=== PATIENT | female | born 1970 | race Caucasian/White ===

== ENCOUNTER → 2016-11-07 | Outpatient (CLI) | payer OTHER ==
--- NOTE | 2016-11-07 11:51 | XR ---
EXAMINATION TYPE: XR foot limited LT DATE OF EXAM: 11/07/2016 CLINICAL HISTORY: Left foot pain since injury 2 years ago. TECHNIQUE: Frontal and lateral images of the left foot are obtained. COMPARISON: None FINDINGS: There is no acute fracture/dislocation evident in the left foot. There is joint space loss with sclerosis and spurring anterior talonavicular articulation. There is moderate size inferior bladimir caneal spur. There is flexion in varus positioning of distal fourth and fifth toes. The overlying so ft tissue appears unremarkable. IMPRESSION: There is calcaneal spurring and hindfoot arthropathy talonavicular articulation.
[2016-11-07 13:36] LABS: CH 31.2; CHCM 33.4; HCT 44.8 % (34.0-46.0); HDW 2.38; HGB 15.1 gm/dL (11.4-16.0); MCH 31.6 pg (25.0-35.0); MCHC 33.7 g/dL (31.0-37.0); MCV 93.8 fL (80.0-100.0); Mean Platelet Volume 7.4; RBC 4.78 m/uL (3.80-5.40); RDW 12.6 % (11.5-15.5); WBC 7.4 k/uL (3.8-10.6)
[2016-11-07 13:39] LABS: ALT 31 U/L (9-52); AST 23 U/L (14-36); Alkaline Phosphatase 57 U/L (38-126); Anion Gap 6 mmol/L; Blood Urea Nitrogen 11 mg/dL (7-17); Calcium 9.5 mg/dL (8.4-10.2); Carbon Dioxide 29 mmol/L (22-30); Chloride 107 mmol/L (98-107); Cholesterol 145 mg/dL (<200); Glucose 90 mg/dL (74-99); HDL Cholesterol 44 mg/dL (40-60); Non-African American GFR(MDRD) >60 (>60 ml/min/1.73 sqM); Potassium 4.6 mmol/L (3.5-5.1); Sodium 142 mmol/L (137-145); Total Bilirubin 0.4 mg/dL (0.2-1.3); Total Protein 5.5 g/dL (6.3-8.2); Triglycerides 74 mg/dL (<150)
[2016-11-07 14:02] LABS: Hemoglobin A1C 5.3 % (4.2-6.1)
== END | disposition home or self-care (01) ==
LOC: RADXRMAIN 11:20
PROVIDERS: ATTEND Internal Medicine
DX: S99.922A Unspecified injury of left foot, initial encounter (principal); R53.83 Other fatigue; M77.32 Calcaneal spur, left foot; X58.XXXA Exposure to other specified factors, initial encounter
CPT/HCPCS: 80053; 80061; 83036; 84439; 84443; 84481; 85027

== ENCOUNTER → 2018-07-04 | Outpatient (CLI) | payer BC ==
[2018-07-04 14:34] LABS: Basophils % (A) 1 %; Eosinophils # (A) 0.2 k/uL (0-0.7); Eosinophils % (A) 3 %; HCT 43.8 % (34.0-46.0); Lymphocytes % (A) 50 %; MCH 30.2 pg (25.0-35.0); MCHC 32.1 g/dL (31.0-37.0); MCV 94.1 fL (80.0-100.0); Mean Platelet Volume 6.6; Monocytes # (A) 0.2 k/uL (0-1.0); Monocytes % (A) 3 %; Neutrophils # (A) 2.5 k/uL (1.3-7.7); Neutrophils % (A) 41 %; Platelet Count 217 k/uL (150-450); RBC 4.65 m/uL (3.80-5.40); RDW 12.8 % (11.5-15.5)
[2018-07-04 19:45] LABS: Albumin 3.7 g/dL (3.80-4.90); Albumin/Globulin Ratio 2.47 (1.60-3.17); Anion Gap 6.2 mmol/L (4.00-12.00); Calcium 9.1 mg/dL (8.7-10.3); Carbon Dioxide 27.8 mmol/L (21.6-31.8); Globulin 1.5 g/dL (1.6-3.3); LDL Cholesterol,Calculated 99.2 mg/dL (0.0-131.0); Potassium 3.9 mmol/L (3.5-5.5); Total Bilirubin 0.4 mg/dL (0.2-1.2); Total Protein 5.2 g/dL (6.2-8.2); VLDL Calculation 27.8 mg/dL (5.00-40.00)
[2018-07-04 19:52] LABS: T4, Free (Free Thyroxine) 1.3 ng/dL (0.80-1.80)
== END | disposition home or self-care (01) ==
LOC: LABWHC1 13:48
PROVIDERS: ATTEND Nurse Practitioner Women's Health
DX: Z00.00 Encounter for general adult medical examination without abnormal findings (principal); I10 Essential (primary) hypertension; Z79.899 Other long term (current) drug therapy
CPT/HCPCS: 36415; 80053; 80061; 84439; 84443; 85025

== ENCOUNTER → 2018-07-19 | Outpatient (CLI) | payer BC ==
--- NOTE | 2018-07-20 10:36 | MM ---
Reason for exam: screening (asymptomatic). Last mammogram was performed 5 years and 7 months ago. History: Patient is postmenopausal. Benign right mammotome panel of the right breast, December 21, 2010. Cancelled Right Mammotome of the right breast, May 04, 2010. Physical Findings: A clinical breast exam by your physician is recommended on an annual basis and results should be correlated with mammographic findings. MG Screening Mammo w CAD Bilateral CC and MLO view(s) were taken. Prior study comparison: December 05, 2012, bilateral digital screening mammo w/CAD. December 21, 2010, CAD bilateral diagnostic mammogram. There are scattered fibroglandular densities. Previous mammotome biopsy in the right breast. There is chronic nodularity in the right breast. No significant changes when compared with prior studies. ASSESSMENT: Benign, BI-RAD 2 RECOMMENDATION: Routine screening mammogram of both breasts in 1 year.
== END | disposition home or self-care (01) ==
LOC: RADMAMWWP 16:18
PROVIDERS: ATTEND Family Medicine
DX: Z12.31 Encounter for screening mammogram for malignant neoplasm of breast (principal)
CPT/HCPCS: 77067

== ENCOUNTER → 2019-02-07 | Outpatient (CLI) | payer BC ==
--- NOTE | 2019-02-07 11:41 | MR ---
MR left ankle without contrast HISTORY: Osteoarthritis, tibial tendon tear Multiplanar multisequence imaging through the left ankle Correlation to left foot dated 11/07/2016 There is been progression of patient's marked osteoarthritic change especially at the talonavicular j oint, hypertrophic changes with subchondral geode formation, marginal spurring, subchondral sclerosis and joint space loss is noted. Additionally joint space loss and subchondral sclerosis, geode format ion and marginal spurring present at the tibiotalar joint. Probable reactive marrow signal change pre sent within the cuboid, calcaneus, talus and navicular. There is some increased signal posterior tibi al tendon peripherally suggesting tendinosis. Prominent navicular bone is present in this region. Leann pect ganglion cyst present arising from the level of the talonavicular joint medially extending in a cephalad direction, intermediate signal on T1, increased signal on T2 measuring 15 mm x 13 mm. Subcut aneous emphysema is present over the dorsum of foot soft tissues laterally. There is a small joint ef fusion. There is a plantar calcaneus spur. Increased signal within the musculature about the ankle co mpatible with myositis, no evident ligamentous disruption. Fluid signal along the flexor hallucis angel talha tendon, posterior tibial tendon, peroneal longus and brevis tendons compatible with tenosynovitis . Suspect equinovarus deformity present within the foot. IMPRESSION: Osteoarthritis with additional findings above. Suspect tendinosis of the posterior tibial tendon likely secondary to prominent navicular bone.
== END | disposition home or self-care (01) ==
LOC: RADMRIMAIN 08:47
PROVIDERS: ATTEND Podiatrist Foot & Ankle Surgery
DX: M19.072 Primary osteoarthritis, left ankle and foot (principal); M89.372 Hypertrophy of bone, left ankle and foot; M94.8X7 Other specified disorders of cartilage, ankle and foot; M77.32 Calcaneal spur, left foot; T79.7XXA Traumatic subcutaneous emphysema, initial encounter

== ENCOUNTER 2019-02-25 17:39 | Emergency (ER) | payer BC ==
[2019-02-25 17:44] VITALS: BP 124/73; PULSE 73; RESP 16; TEMP 98.1
--- NOTE | 2019-02-25 18:28 | XR ---
EXAMINATION TYPE: XR ankle complete RT DATE OF EXAM: 02/25/2019 COMPARISON: 05/24/2011 HISTORY: Ankle pain TECHNIQUE: 3 views FINDINGS: There is plantar calcaneal spurring. There is spurring at the talonavicular joint. There is narrowing of the ankle joint space. I see no fracture nor dislocation. There is soft tissue swelling around the ankle joint. IMPRESSION: Degenerative spurring and osteoarthritis. No fracture seen. There is significant progress ion of osteoarthritis at the talonavicular joint compared to old exam.
--- NOTE | 2019-02-25 18:36 | XR ---
EXAMINATION TYPE: XR foot complete RT DATE OF EXAM: 02/25/2019 COMPARISON: NONE HISTORY: Foot pain ankle pain TECHNIQUE: 3 views FINDINGS: There is moderate plantar calcaneal spurring. I see no fracture nor dislocation. Metatarsal s are intact. There is spurring at the talonavicular joint. IMPRESSION: Osteoarthritis at the talonavicular joint. No fracture seen.
--- NOTE | 2019-02-25 18:43 | ED ---
Lower Extremity Injury HPI - General Chief Complaint: Extremity Injury, Lower Stated Complaint: Ankle Pain Time Seen by Provider: 02/25/19 17:46 Source: patient, RN notes reviewed, old records reviewed Mode of arrival: ambulatory Limitations: no limitations - History of Present Illness Initial Comments: Is a 48-year-old female presents today with 3 days of right ankle and foot pain. She reports no known injury. She states she has history of arthritis in her left foot, and uses her right foot to compensate for this. Patient has had no specific change in skin or peripheral paresthesias. Patient denies any other complaints. - Related Data Previous Rx's Medication Instructions Recorded Ibuprofen [Motrin] 400 mg PO Q4H #20 tab 02/25/19 Allergies Allergy/AdvReac Type Severity Reaction Status Date / Time No Known Allergies Allergy Verified 02/25/19 17:40 Review of Systems ROS Statement: Those systems with pertinent positive or pertinent negative responses have been documented in the HPI. ROS Other: All systems not noted in ROS Statement are negative. Past Medical History Past Medical History: No Reported History History of Any Multi-Drug Resistant Organisms: None Reported Past Surgical History: No Surgical Hx Reported Past Psychological History: No Psychological Hx Reported Smoking Status: Former smoker Past Alcohol Use History: None Reported Past Drug Use History: None Reported General Exam - General Exam Comments Initial Comments: 48-year-old female. No distress. Limitations: no limitations General appearance: alert, in no apparent distress Head exam: Present: atraumatic, normocephalic, normal inspection Eye exam: Present: normal appearance, PERRL, EOMI. Absent: scleral icterus, conjunctival injection, periorbital swelling ENT exam: Present: normal exam, normal oropharynx Neck exam: Present: normal inspection. Absent: tenderness, meningismus, lymphadenopathy Respiratory exam: Present: normal lung sounds bilaterally. Absent: respiratory distress, wheezes, rales, rhonchi, stridor Cardiovascular Exam: Present: regular rate, normal rhythm, normal heart sounds. Absent: systolic murmur, diastolic murmur, rubs, gallop, clicks GI/Abdominal exam: Present: soft, normal bowel sounds. Absent: distended, tenderness, guarding, rebound, rigid Extremities exam: Present: normal inspection, full ROM, normal capillary refill. Absent: tenderness, pedal edema, joint swelling, calf tenderness Right Lower Leg exam: Present: normal inspection, full ROM Ankle exam: Present: normal inspection, tenderness, swelling (Patient status and swelling over the lateral malleolus. No erythema.) Foot/Toe exam: Present: normal inspection, full ROM Neurovascular tendon exam: Present: no vascular compromise Back exam: Present: normal inspection Neurological exam: Present: alert, oriented X3, CN II-XII intact Psychiatric exam: Present: normal affect, normal mood Skin exam: Present: warm, dry, intact, normal color. Absent: rash Course Vital Signs 02/25/19 17:41 Temperature 98.1 F Pulse Rate 73 Respiratory 16 Rate Blood Pressure 124/73 O2 Sat by Pulse 98 Oximetry Medical Decision Making - Medical Decision Making Choking and presents today with no known injury, but complaining of right foot and ankle pain. She has some tenderness and swelling over the lateral malleolus. X-rays completed shows evidence of osseous arthritis the talo navicular joint. I discussed the Patient can be given Jason wrap, exanthems her medicine rest ice and elevate. Patient has an branch or department chief librarian that she sees at this time for her left foot arthritis. Discussed that she can follow-up in today with her right foot pain. Patient is agreeable treatment plan will comply. - Radiology Data Radiology results: report reviewed X-ray of foot and ankle show osteoarthritis of the talo navicular joint. No fracture seen. Disposition Clinical Impression: Ankle arthritis Disposition: HOME SELF-CARE Condition: Good Instructions (If sedation given, give patient instructions): Ankle Sprain (ED), Osteoarthritis (ED), Foot Sprain (ED) Additional Instructions: Patient should rest ice and elevate the foot and ankle. Follow-up with your foot and ankle specialist. Return to the emergency department if any alarming signs or symptoms occur. Prescriptions: Ibuprofen [Motrin] 400 mg PO Q4H #20 tab Is patient prescribed a controlled substance at d/c from ED?: No Referrals: Chavez Dill Jr, DO [Primary Care Provider] - 1-2 days Time of Disposition: 18:42
== END 2019-02-25 18:56 | disposition home or self-care (01) ==
LOC: EEVIPCON 17:39 → EC 17:39
DX: M19.071 Primary osteoarthritis, right ankle and foot (principal); Z87.891 Personal history of nicotine dependence
CPT/HCPCS: 99284

== ENCOUNTER → 2019-06-22 | Outpatient (CLI) | payer BC ==
--- NOTE | 2019-06-22 17:45 | XR ---
EXAMINATION TYPE: XR ankle complete bilateral, 3 views each, XR foot complete bilateral, 3 views each DATE OF EXAM: 06/22/2019 Comparison: 02/25/2019, 11/07/2016 Clinical History: 48-year-old female chronic foot and ankle pain M25.571 M25.572 Findings: Left ankle: At least moderate degenerative change at the tibiotalar joint with eccentric medial joint space narro wing and some subtle irregularity of the subchondral bone. Bulky degenerative spurring with significa nt joint space narrowing and articular surface irregularity along the talonavicular joint. Some loss of the distal tibiofibular overlap. Moderate-sized plantar calcaneal spur. Smooth delineation to the Achilles tendon. Right ankle: Additional moderate to severe degenerative change talonavicular joint. Bony hyperostosis inferior asp ect of the lateral malleolus side suggests sequela of remote injury. Loss of the distal tibiofibular overlap. Lesser degree of eccentric joint space narrowing along the medial talar dome. Left foot: Mild degenerative change first MTP joint with mild bunion formation. Again, plantar calcaneus spur an d severe bone on bone degenerative change talonavicular joint with bony remodeling. No acute fracture or dislocation seen. Right foot: Mild degenerative change first MTP joint and mild bunion formation. Moderate-sized plantar calcaneal spur and redemonstrated is [id number] severe degenerative change talonavicular joint with bony ursula deling. No acute fracture, subluxation, dislocation. Impression: 1. Left ankle and foot: Suspect old high ankle sprain. At least moderate tibiotalar joint OA especial ly along the medial aspect of the joint. Severe, [id number] talonavicular joint OA with bony remode ling. Moderate-sized plantar calcaneal spur. 2. Right ankle and foot: Similarly, suspect old high ankle sprain. Mild tibiotalar joint OA. Severe, [id number] talonavicular joint OA with bony remodeling. Moderate-sized plantar calcaneal heel spur.
== END | disposition home or self-care (01) ==
LOC: RADXRMAIN 14:50
PROVIDERS: ATTEND Family Medicine
DX: M19.071 Primary osteoarthritis, right ankle and foot (principal); M19.072 Primary osteoarthritis, left ankle and foot

== ENCOUNTER → 2020-04-13 | Outpatient (CLI) | payer OTHER ==
--- NOTE | 2020-04-13 09:50 | XR ---
EXAMINATION TYPE: XR knee complete LT DATE OF EXAM: 04/13/2020 CLINICAL HISTORY: pain TECHNIQUE: Three views of the left knee are obtained. COMPARISON: 04/11/2014 FINDINGS: There is no acute fracture/dislocation. Narrowing is noted medial tibiofemoral compartment . Mild spur formation noted as well. The overlying soft tissue appears unremarkable. IMPRESSION: There is no acute fracture or dislocation ICD 10 NO FRACTURE, INITIAL EVALUATION
== END | disposition home or self-care (01) ==
LOC: RADXRMAIN 09:17
PROVIDERS: ATTEND Family Medicine
DX: M25.562 Pain in left knee (principal); M25.462 Effusion, left knee

== ENCOUNTER 2021-09-20 11:49 | Emergency (ER) | payer OTHER ==
[2021-09-20 12:38] VITALS: TEMP 97.8
[2021-09-20] MEDS ORDERED: NYSTATIN 100,000 UNIT/GM OINT 30 GM TUBE TOPICAL STA (12:53)
--- NOTE | 2021-09-20 13:00 | ED ---
General Adult HPI - General Chief complaint: Skin/Abscess/Foreign Body Stated complaint: rash Time Seen by Provider: 09/20/21 12:45 Source: patient, RN notes reviewed Mode of arrival: ambulatory Limitations: no limitations - History of Present Illness Initial comments: 50-year-old female presents to the emergency department for evaluation of erythematous rash to the left axilla. Patient states she noticed the redness and mild discomfort 3-4 days ago, but became concerned this afternoon when someone mentioned to her the possibility of shingles. Patient denies fever, chills, itching, chest pain, back pain, abdominal pain, and drainage from rash, - Related Data Previous Rx's Medication Instructions Recorded Ibuprofen [Motrin] 400 mg PO Q4H #20 tab 02/25/19 Nystatin 100,000Unit/gm Cream 1 applic TOPICAL BID 10 Days #15 09/20/21 [Mycostatin Cream] gram Allergies Allergy/AdvReac Type Severity Reaction Status Date / Time No Known Allergies Allergy Verified 09/20/21 12:38 Review of Systems ROS Statement: Those systems with pertinent positive or pertinent negative responses have been documented in the HPI. ROS Other: All systems not noted in ROS Statement are negative. Past Medical History Past Medical History: No Reported History History of Any Multi-Drug Resistant Organisms: None Reported Past Surgical History: No Surgical Hx Reported Past Psychological History: No Psychological Hx Reported Smoking Status: Never smoker Past Alcohol Use History: None Reported Past Drug Use History: None Reported General Exam Limitations: no limitations (Well-developed, well-nourished female in no acute distress. Initial temperature 97.8, pulse 65, respirations 20, blood pressure 118/69, pulse ox 97% on room air.) General appearance: alert, in no apparent distress ENT exam: Present: normal exam, normal oropharynx, mucous membranes moist Respiratory exam: Present: normal lung sounds bilaterally. Absent: respiratory distress, wheezes, rales, rhonchi, stridor Cardiovascular Exam: Present: regular rate, normal rhythm, normal heart sounds. Absent: systolic murmur, diastolic murmur, rubs, gallop, clicks GI/Abdominal exam: Present: soft, normal bowel sounds. Absent: distended, tenderness, guarding, rebound, rigid Neurological exam: Present: alert, oriented X3, CN II-XII intact Psychiatric exam: Present: normal affect, normal mood Skin exam: Present: warm, dry, intact, rash (large erythematous area in left axillary folds extending to posteriorly along folds; no vesicles or satellite lesions) Course Vital Signs 09/20/21 09/20/21 12:36 14:10 Temperature 97.8 F Pulse Rate 65 62 Respiratory 20 18 Rate Blood Pressure 118/69 122/87 O2 Sat by Pulse 97 96 Oximetry Medical Decision Making - Medical Decision Making This is a 50-year-old female with no significant past medical history presents to the emergency department for evaluation of erythematous rash to the left axilla. This rash is concentrated in the axillary fold and extends posteriorly along the fold line. There are no vesicles or satellite lesions. Rash is consistent with Sonia infection. Patient is prescribed nystatin ointment and instructed on avoiding topical irritants. She is encouraged to keep the area clean and dry. Instructed to follow up with her PCP for a recheck next week as needed. Return parameters discussed in detail. Patient verbalizes understanding and agrees with this plan. Attending: Marjorie. Disposition Clinical Impression: Sonia infection of flexural skin Disposition: HOME SELF-CARE Condition: Stable Instructions (If sedation given, give patient instructions): Skin Yeast Infection (ED) Additional Instructions: Apply cream twice daily to affected area. Keep the area clean and dry. Avoid applying deodorant until rash resolved. Follow-up with your PCP for a recheck next week. Return to the emergency department with any new, worsening, or concerning symptoms. Prescriptions: Nystatin 100,000Unit/gm Cream [Mycostatin Cream] 1 applic TOPICAL BID 10 Days #15 gram Is patient prescribed a controlled substance at d/c from ED?: No Referrals: Shyanne Zuleta MD [Primary Care Provider] - 1-2 days Time of Disposition: 13:02
[2021-09-20 14:11] VITALS: BP 122/87; PULSE 62; RESP 18
== END 2021-09-20 14:11 | disposition home or self-care (01) ==
LOC: EC 11:49 → EEVIPCON 11:49 → EC 14:11
DX: B37.2 Candidiasis of skin and nail (principal)

== ENCOUNTER → 2022-04-16 | Outpatient (CLI) | payer OTHER ==
--- NOTE | 2022-04-16 08:22 | US ---
EXAMINATION TYPE: US thyroid st tissue head/neck DATE OF EXAM: 04/16/2022 COMPARISON: NONE CLINICAL HISTORY: E05.90 THYROTOXICOSIS, UNSP WO THYROTOXIC CRISIS. Hyperthyroidism GLAND SIZE: Right Lobe: 6.0 x 2.2 x 2.1 cm Overall Parenchyma: homogenous Left Lobe: 5.1 x 1.7 x 2.1 cm Overall Parenchyma: homogeneous Isthmus Thickness: 0.3 cm NODULES RIGHT: # of nodules measured on right: 0 LEFT: # of nodules measured on left: 0 ISTHMUS: # of nodules measured in the isthmus: 0 Bilateral neck scanned, no evidence of lymphadenopathy. Homogeneous slightly enlarged thyroid gland. No discrete nodule is evident. IMPRESSION: As above.
== END | disposition home or self-care (01) ==
LOC: RADUSWWP 07:45
PROVIDERS: ATTEND Family Medicine
DX: E05.90 Thyrotoxicosis, unspecified without thyrotoxic crisis or storm (principal)
CPT/HCPCS: 76536

== ENCOUNTER → 2022-08-10 | Outpatient (CLI) | payer OTHER ==
--- NOTE | 2022-08-10 18:53 | NM ---
EXAMINATION TYPE: NM DatScan Brain SPECT DATE OF EXAM: 08/10/2022 COMPARISON: NONE HISTORY: Tremor TECHNIQUE: 10 drops of Lugol's solution was administered 1 hour prior to injection as a thyroid bloc dominick agent. After the administration of 4.3 mCi I-123 Ioflupane DaTscan. Images obtained [address] injection. SPECT images of the brain were acquired with axial and coronal reconstructions. FINDINGS: The uptake of radiotracer within the patient's caudate nuclei and putamina is symmetric and crescent- shaped. IMPRESSION: There is no scintigraphic evidence of a neurodegenerative disorder (Parkinson's disease, Multisystem atrophy or Progressive supranuclear palsy), as there is symmetric uptake of I-123 Ioflupan (DaTscan) within the caudate nuclei and putamina.
== END | disposition home or self-care (01) ==
LOC: RADNMMAIN 11:08
PROVIDERS: ATTEND Psychiatry & Neurology Neurology
DX: G25.0 Essential tremor (principal)
CPT/HCPCS: 78803; A9584

== ENCOUNTER → 2023-03-15 | Outpatient (CLI) | payer OTHER ==
[2023-03-15 18:17] LABS: Basophils # (A) 0.05 X 10*3/uL (0.00-0.10); Basophils % (A) 0.8 %; Eosinophils # (A) 0.21 X 10*3/uL (0.04-0.35); Eosinophils % (A) 3.5 %; HCT 39.2 % (37.2-46.3); HGB 12.7 g/dL (12.0-15.0); Lymphocytes % (A) 30.1 %; MCH 30.5 pg (27.0-32.0); MCHC 32.4 g/dL (32.0-37.0); Monocytes # (A) 0.45 X 10*3/uL (0.20-1.00); Monocytes % (A) 7.5 %; NRBC Per 100 WBC 0 X 10*3/uL (0.00-0.01); Neutrophils # (A) 3.45 X 10*3/uL (1.80-7.70); Neutrophils % (A) 57.8 %; Platelet Count 258 X 10*3/uL (140-440); RBC 4.17 X 10*6/uL (4.10-5.20); RDW 12.6 % (11.5-14.5); WBC 5.98 X 10*3/uL (4.50-10.00)
[2023-03-15 20:22] LABS: BUN/Creat Ratio 19.29 Ratio (12.00-20.00); Blood Urea Nitrogen 13.5 mg/dL (9.0-27.0); Calcium 9.6 mg/dL (8.7-10.3); Chloride 103 mmol/L (96-109); Glucose 102 mg/dL (70-110); Potassium 4.5 mmol/L (3.5-5.5); Sodium 139 mmol/L (135-145)
== END | disposition home or self-care (01) ==
LOC: LABPAT 10:31
PROVIDERS: ATTEND Orthopaedic Surgery Hand Surgery
DX: Z01.812 Encounter for preprocedural laboratory examination (principal); S63.286A Dislocation of proximal interphalangeal joint of right little finger, initial encounter; X58.XXXA Exposure to other specified factors, initial encounter
CPT/HCPCS: 80048; 85025

== ENCOUNTER 2023-03-16 12:20 | Day surgery (SDC) | payer OTHER ==
--- NOTE | 2023-03-15 12:01 | P.HPOR ---
History of Present Illness H&P Date: 03/15/23 Subjective: This is a 52 year old female that presents today for initial evaluation regarding a right small finger injury that occurred on 03/09/2023. She was taking clothes out of her dresser and jammed her right small finger. She noticed immediate deformity of the finger and went to [facility] where x- rays were obtained and multiple attempts at closed reduction were performed. She states they tried a total of 4 times to reduce the finger, but each time it was reduced it shortly became deformed after. She was then discharged and sent for outpatient follow-up. She presents today stating the finger still looks crooked and has not been wearing the splint because the splint does not fit on the finger. She denies any numbness or tingling. Physical Examination: RUE: AIN/PIN/Radial/Ulnar/Median motor intact. Radial/Ulnar/Median SILT. 2+/4 Radial/Ulnar pulses palpated. 5/5 APB, 5/5 FDI. Visual deformity of right small finger. Cap refill < 3 seconds. FDP/FDS intact. Imaging: X-Rays of the right small finger, 2 views taken in the office today demonstrate a right small finger volar PIP joint dislocation. Impression: 1.)right small finger volar PIP joint dislocation, subacute. Plan: Diagnosis and treatment options were discussed with the patient. We discussed the complexity of her injury since she has now had a dislocated finger for 6 days. Attempt at closed reduction was made but was unsuccessful as the deformity has become fixed. I recommend urgent surgical intervention with open reduction internal fixation of her right small finger PIP joint dislocation. Risks and benefits of surgery including bleeding, infection, damage to surrounding tissue, need for further surgery, residual numbness were discussed and the patient wished to go forward with surgery. The patient was agreeable with this plan. CC: [facility] (Dr Blanca) -Fermin Swenson DO Orthopedic Hand/Upper Extremity Surgeon Past Medical History Past Medical History: No Reported History History of Any Multi-Drug Resistant Organisms: None Reported Past Surgical History: No Surgical Hx Reported Past Psychological History: No Psychological Hx Reported Smoking Status: Never smoker Past Alcohol Use History: None Reported Past Drug Use History: None Reported Medications and Allergies Home Medications Medication Instructions Recorded Confirmed Type Ibuprofen [Motrin] 400 mg PO Q4H #20 tab 02/25/19 Rx Nystatin 100,000Unit/gm Cream 1 applic TOPICAL BID 10 Days #15 09/20/21 Rx [Mycostatin Cream] gram Allergies Allergy/AdvReac Type Severity Reaction Status Date / Time No Known Allergies Allergy Verified 09/20/21 12:38 Physical Examination Osteopathic Statement: *. No significant issues noted on an osteopathic structural exam other than those noted in the History and Physical/Consult.
[2023-03-15 13:47] VITALS: BMI 44.9
[~2023-03-16 12:20] MED LIST: ceFAZolin 3 GM in SODIUM CHLORIDE 0.9% 100 ML IVPB PRN
[2023-03-16] MEDS ORDERED: LACTATED RINGERS 1,000 ML IV ONE (13:30)
[2023-03-16 13:46] VITALS: RESP 16; TEMP 98.5
[2023-03-16] MEDS ORDERED: PROPOFOL 10 MG/ML 20 ML VIAL IV ONE (14:28)
[2023-03-16] MEDS ORDERED: KETAMINE HCL IN 0.9 % NACL 50 MG/5 ML SYRINGE ONE (14:28)
[2023-03-16] MEDS ORDERED: MIDAZOLAM 2 MG/2 ML VIAL ONE (14:28)
[2023-03-16] MEDS ORDERED: LIDOCAINE 1% INJ 10MG/ML (20 ML MDV) ONE (14:28)
[2023-03-16] MEDS ORDERED: fentaNYL (PF) 50 MCG/ML 2 ML AMP ONE (14:28)
[2023-03-16] MEDS ORDERED: BUPIVACAINE (PF) 0.5% 30 ML VIAL SQ ONE (14:46)
[2023-03-16] MEDS ORDERED: LIDOCAINE 1% INJ 10MG/ML (30 ML VIAL-PF) SQ ONE (14:53)
--- NOTE | 2023-03-16 15:13 | P.OP ---
Date of Procedure: 03/16/23 Preoperative Diagnosis: Right small finger PIP joint volar dislocation, subacute Postoperative Diagnosis: Right small finger PIP joint volar rotary dislocation, subacute Procedure(s) Performed: 1.) Right small finger PIP joint dislocation open reduction. 2.) Right small finger extensor tendon repair at level of finger Anesthesia: MAC Surgeon: Fermin Swenson Owner/Photographer #1: Ricky Velazquez Estimated Blood Loss (ml): 0 Pathology: none sent Condition: stable Disposition: PACU Description of Procedure: This is a 52 year old female who presents today for open reduction of a sub acute right small finger PIP joint volar dislocation. Risks and benefits of surgery were discussed with the patient including bleeding, damage to surrounding tissue, infection, need for further surgery as well as risks of anesthesia including pulmonary embolism and even and the patient wished to proceed with surgical intervention. The patient was seen in the pre-operative area by myself. Consent and H&P were completed and updated. The correct extremity was marked in the pre-operative area by myself and all other questions were answered. Operative Narrative: The patient was brought to the operating room by the department of anesthesia. They remained on the portable stretcher and a rolling hand table was brought to the side of the operative extremity. Pre-operative time out was performed indicating the correct patient, procedure and laterality. All in the room agreed. Pre-operative antibiotics were given prior to skin incision. The patient was then drifted off to sleep by the department of anesthesia. Digital block was performed with 7cc's of 0.5% Lidocaine and 1% lidocaine in a 50:50 mixture. A nonsterile tourniquet was then applied to the operative extremity and the right upper extremity was then prepped and draped in normal sterile fashion. The operative extremity was the exsanguinated with an esmarch bandage and the tourniquet was inflated to 250mmHg. Curvlinear incision was made over the dorsal aspect of the PIP joint with a 15 blade scalpel. Blunt dissection was taken through subcutaneous tissues. Upon dissection of the subcutaneous tissues the ulnar condyle of the proximal phalanx was found to be buttonholed in between two sides of an oblique tear of the central slip. The finger was then reduced and the laceration to the extensor tendon of the central slip was repaired with multiple interuppted 4-0 monocryl sutures. The finger was now reduced and stable through range of motion. The finger was then ranged after successfull reduction and was found to be stable under mini c -arm. Skin closure was then performed with 4-0 nylon suture and a soft dressing with adaptic, 4x4s and a volar finger splint. Tourniquet was let down and the finger had immediate perfusion. The patient was then woken by the department of anesthesia and transferred to PACU in stable condition. Ricky GAMEZ was present for the case to assist in reduction and other major portions of the procedure listed above. Fermin Swenson D.O. Orthopedic Hand/Upper Extremity Surgeon
[2023-03-16 15:42] VITALS: BP 118/72; PULSE 95
== END 2023-03-16 16:01 | disposition home or self-care (01) ==
LOC: OR 12:20 → EEVIPCON 15:25 → OR 16:01
PROVIDERS: ATTEND Orthopaedic Surgery Hand Surgery
DX: S63.286A Dislocation of proximal interphalangeal joint of right little finger, initial encounter (principal); I10 Essential (primary) hypertension; G47.33 Obstructive sleep apnea (adult) (pediatric); M19.90 Unspecified osteoarthritis, unspecified site; G20.A1 Parkinson's disease without dyskinesia, without mention of fluctuations; Z79.1 Long term (current) use of non-steroidal anti-inflammatories (NSAID); Z79.899 Other long term (current) drug therapy; Z98.51 Tubal ligation status; X58.XXXA Exposure to other specified factors, initial encounter
CPT/HCPCS: 26418; 26770; J2250; J0690; J2001 ×2; J3010; J2704; J0665

== ENCOUNTER → 2023-03-18 | Outpatient (CLI) | payer OTHER ==
--- NOTE | 2023-03-18 16:12 | US ---
EXAMINATION TYPE: US venous doppler duplex LE LT DATE OF EXAM: 03/18/2023 3:58 PM COMPARISON: NONE CLINICAL INDICATION: Female, 52 years old with history of M79.89 OTHER SPECIFIED SOFT TISSUE DISORDER S; Left leg swelling. No redness. Not on blood thinners. SIDE PERFORMED: Left TECHNIQUE: The lower extremity deep venous system is examined utilizing real time linear array sonog ulises with graded compression, doppler sonography and color-flow sonography. VESSELS IMAGED: Common Femoral Vein Deep Femoral Vein Greater Saphenous Vein * Femoral Vein Popliteal Vein Small Saphenous Vein * Proximal Calf Veins (* superficial vessels) Left Leg: Negative for DVT IMPRESSION: Grayscale, color doppler, spectral doppler imaging performed of the deep veins of the lo wer extremities. There is normal flow, compressibility, vascular waveforms.
== END | disposition home or self-care (01) ==
LOC: RADUSWWP 15:32
PROVIDERS: ATTEND Internal Medicine
DX: M79.89 Other specified soft tissue disorders (principal)

== ENCOUNTER → 2023-06-02 | Outpatient (CLI) | payer OTHER ==
--- NOTE | 2023-06-02 10:05 | XR ---
EXAMINATION TYPE: XR Hip LT and AP Pelvis DATE OF EXAM: 06/02/2023 9:40 AM CLINICAL INDICATION:Female, 52 years old with history of [id number] L hip pain; PHH COMPARISON: None. TECHNIQUE: XR Hip LT and AP Pelvis; hip was examined in the frontal and lateral projections and a AP pelvis. FINDINGS: No evidence for acute process, joint dislocation or significant soft tissue swelling. Osteo phyte formation of the superior acetabulum of the hip. There is moderate joint space tearing of the l eft hip. Tubal ligation clips present. IMPRESSION: 1. No evidence for acute process. 2. Moderate hip osteoarthrosis.
== END | disposition home or self-care (01) ==
LOC: RADXRMAIN 09:16
PROVIDERS: ATTEND Family Medicine
DX: M16.12 Unilateral primary osteoarthritis, left hip (principal); M25.552 Pain in left hip
CPT/HCPCS: 73502

== ENCOUNTER → 2023-06-06 | Outpatient (CLI) | payer OTHER ==
--- NOTE | 2023-06-07 22:21 | MM ---
Reason for Exam: Screening (asymptomatic). Last mammogram was performed 4 year(s) and 11 month(s) ago. Patient History: Menarche at age 9. First Full-Term at age 21. Postmenopausal. 12/21/2010, Benign Core Biopsy on the right side. 05/04/2010, Cancelled Right Mammotome on the right side. Risk Values: Jennifer 5 year model risk: 1.3%. NCI Lifetime model risk: 9.6%. Prior Study Comparison: 12/21/2010 Bilateral Diagnostic Mammogram, [facility]. 12/05/2012 Bilateral Screening Mammogram, [facility]. 07/19/2018 Bilateral Screening Mammogram, [facility]. Tissue Density: There are scattered fibroglandular densities. Findings: Analyzed By CAD. Unchanged asymmetric density outer aspect of the right CC view posterior depth. Microclip related to prior biopsy. There is no suspicious group of microcalcifications or new suspicious mass in either breast. Overall Assessment: Benign, BI-RAD 2 Management: Screening Mammogram of both breasts in 1 year. . Patient should continue monthly self-breast exams. A clinical breast exam by your physician is recommended on an annual basis. This exam should not preclude additional follow-up of suspicious palpable abnormalities. Note on Jennifer scores and lifetime risk: 1. A Jennifer score greater than 3% is considered moderate risk. If this is the case, consider specialist referral to assess eligibility for a risk reducing agent. 2. If overall lifetime risk for the development of breast cancer is 20% or higher, the patient may qualify for future screening with alternating mammogram and breast MRI. Electronically signed and approved by: Andrzej Cantu M.D. Radiologist
== END | disposition home or self-care (01) ==
LOC: RADMAMWWP 10:10
PROVIDERS: ATTEND Family Medicine
DX: Z12.31 Encounter for screening mammogram for malignant neoplasm of breast (principal); Z78.0 Asymptomatic menopausal state
CPT/HCPCS: 77063; 77067

== ENCOUNTER 2023-12-12 03:50 | Emergency (ER) | payer OTHER ==
[2023-12-12] MEDS ORDERED: MORPHINE SULFATE 4 MG/ML SYRINGE ONE (08:40)
[2023-12-12] MEDS ORDERED: KETOROLAC 15 MG/ML 1 ML VIAL ONE (08:40)
[2023-12-12] MEDS ORDERED: ACET/COD 300 MG/30 MG STARTER PACK 6 TAB BTL PO ONE (12:06)
[2023-12-12] MEDS ORDERED: BACITRACIN OINT 1 EACH PACKET TOPICAL ONE (12:07)
--- NOTE | 2024-01-10 10:11 | XR ---
Patient Lay Roberts ID [id number] EXAMINATION TYPE: XR Hip Bilateral Complete DATE OF EXAM: 12/12/2023 COMPARISON: 06/02/2023 HISTORY: 52-year-old female Bilateral hip pain, fall TECHNIQUE: Bilateral hips examination 2 projections each FINDINGS: There is end-stage [id number] degenerative change of the left hip with complete loss of s uperolateral weightbearing joint space. Associated subchondral sclerosis and cystic change and margin al spurring. Mild degenerative change of the right hip is similar. Bilateral tubal ligation clips. Th ere is osteopenia. However, no displaced fracture is seen. IMPRESSION: 1. Progressive left hip OA, now end-stage [id number]. Fairly significant progression compared to t he recent prior. 2. Similar mild right hip OA. 3. Osteopenia without displaced fracture.
--- NOTE | 2024-01-10 10:12 | XR ---
Patient Lay Roberts ID [id number] Age 52 years Gender F Order # EXAMINATION TYPE: XR foot complete RT DATE OF EXAM: 12/12/2023 COMPARISON: 02/25/2019 HISTORY: Infection top of right foot TECHNIQUE: 3 view right foot FINDINGS: No acute fracture or dislocation is. There is prominent soft tissue swelling over the proxi mal foot. Degenerative changes are talometatarsal junction. Plantar and Achilles tendon calcaneal axel l spurs are present.. Follow up exams can be performed as clinically indicated. IMPRESSION: 1. Diffuse soft tissue swelling greater along the dorsal foot. 2. Calcaneal heel spurs
== END 2023-12-12 12:15 | disposition home or self-care (01) ==
LOC: EC 03:50
CPT/HCPCS: 73521; 93005; 96374; 96375; 99283

== ENCOUNTER 2023-12-18 02:12 | Emergency (ER) | payer OTHER ==
[2023-12-18] MEDS ORDERED: cefTRIAXone 2 GM VIAL ONE (02:30)
[2023-12-18] MEDS ORDERED: SODIUM CHLORIDE 0.9% 1,000 ML BAG ONE (02:45)
[2023-12-18] MEDS ORDERED: SODIUM CHLORIDE 0.9% 100 ML BAG IV ONE (02:45)
[2023-12-18 04:29] LABS: Basophils % (A) 1 %; Eosinophils # (A) 0.4 k/uL (0-0.7); Eosinophils % (A) 7 %; HCT 34.2 % (34.0-46.0); HGB 11.4 gm/dL (11.4-16.0); Lymphocytes # (A) 1.2 k/uL (1.0-4.8); Lymphocytes % (A) 22 %; MCH 30.7 pg (25.0-35.0); MCHC 33.4 g/dL (31.0-37.0); MCV 91.8 fL (80.0-100.0); Mean Platelet Volume 8.6; Monocytes # (A) 0.2 k/uL (0-1.0); Monocytes % (A) 3 %; Neutrophils # (A) 3.5 k/uL (1.3-7.7); Neutrophils % (A) 66 %; Platelet Count 311 k/uL (150-450); RBC 3.73 m/uL (3.80-5.40); RDW 12.8 % (11.5-15.5); WBC 5.3 k/uL (3.8-10.6)
[2023-12-18 04:46] LABS: ALT 69 U/L (4-34); AST 116 U/L (14-36); African American GFR (CKD) >90 (>60 ml/min/1.73 sqM); Albumin 3.5 g/dL (3.5-5.0); Alcohol <10 mg/dL; Alkaline Phosphatase 79 U/L (38-126); Anion Gap 2 mmol/L; Blood Urea Nitrogen 19 mg/dL (7-17); Calcium 9.1 mg/dL (8.4-10.2); Carbon Dioxide 25 mmol/L (22-30); Chloride 103 mmol/L (98-107); Glucose 101 mg/dL (74-99); Magnesium 1.9 mg/dL (1.6-2.3); Non-African American GFR(CKD) >90 (>60 ml/min/1.73 sqM); Potassium 4.1 mmol/L (3.5-5.1); Sodium 130 mmol/L (137-145); Total Bilirubin 0.7 mg/dL (0.2-1.3); Total Protein 5.9 g/dL (6.3-8.2)
== END 2023-12-18 07:32 | disposition home or self-care (01) ==
LOC: EC 02:12
CPT/HCPCS: 36415; 80053; 80320; 83735; 84100; 85025; 87040; 96365; 99283